=== PATIENT | male | born 1965 | race Caucasian/White ===

== ENCOUNTER → 2018-01-21 12:57 | Outpatient (CLI) | payer SELFPAY ==
--- NOTE | 2018-01-21 13:45 | MRI_ITS ---
STUDY: MRI LUMBAR SPINE WITHOUT CONTRAST REASON FOR EXAM: Male, 52 years old. Low back pain and radiculopathy right leg TECHNIQUE: Standardized fat and water weighted pulse sequences were obtained in the sagittal and axial planes. COMPARISON: None FINDINGS: T12-L1: Normal endplates. Normal disc height, hydration and morphology. Normal bilateral facet joints. Normal central canal and bilateral lateral recesses. Normal bilateral intervertebral neural foramina. Normal lumbar lordosis. There is no substantial scoliosis. Normal conus medullaris that terminates at the L1 level. There is buckling of the cauda equina. L1-2: Broad-based posterior disc marginal osteophyte causing moderate narrowing of the neural foramina bilaterally. Central canal measures 7 mm. L2-3: Moderate circumferential disc marginal osteophyte causing moderate narrowing of the inferior neural foramina and narrowing of the thecal sac which measures 5 mm in the midline. L3-4: Mild to moderate narrowing of the inferior neural foramina by small circumferential disc marginal osteophyte. Shortened pedicles also cause narrowing of the thecal sac which measures 6 mm in the midline. L4-5: Moderate central posterior disc extrusion and broad-based disc marginal osteophyte posteriorly with slight anterior subluxation L4-L5. Moderately severe narrowing of the neural foramina inferiorly due to hypertrophic facet disease. Severe narrowing of the central thecal sac. L5-S1: Circumferential disc marginal osteophyte causing moderate narrowing of the inferior neural foramina bilaterally. The thecal sac is patent. Normal visualized sacral ala. Normal visualized paraspinous soft tissue structures. MRI/Spine Lumbar (Routine) IMPRESSION: Multilevel Central lateral spinal stenosis most severe at L4-5. Electronically Signed: Suhas Rucker MD at 20:21 EDT , Service support ,
== END ==
PROVIDERS: Family Provider Family Medicine; PCP Family Medicine; Visit Provider Anesthesiology Pain Medicine
DX: M54.16 Radiculopathy, lumbar region (principal)
CPT/HCPCS: 72148